=== PATIENT | female | born 1965 | race Asian ===

== ENCOUNTER 2017-12-23 08:52 | Observation (INO) | payer OTHER ==
[~2017-12-23] VITALS: Ht 157.5 cm; Wt 61.1 kg
[2017-12-23] MEDS ORDERED: NITROGLYCERIN SINGLE TAB 0.4 MG SL PRN ×2 (09:30→14:00)
[2017-12-23] MEDS ORDERED: NITROGLYCERIN SINGLE TAB 0.4 MG SL ONE (09:41)
[2017-12-23 09:49] LABS: BASOPHILS % (AUTO) 0 % (0-1); EOSINOPHILS # (AUTO) 0.05 x10^3/uL (0-0.4); EOSINOPHILS % (AUTO) 1 % (1-7); LYMPHOCYTES # (AUTO) 1.04 x10^3/uL (1-3.4); LYMPHOCYTES % (AUTO) 11 % (22-44); MD NO; MEAN CORPUSCULAR HEMOGLOBIN 27.6 pg (27.0-34.8); MEAN CORPUSCULAR HGB CONC 33.1 g/dL (32.4-35.8); MEAN CORPUSCULAR VOLUME 83.4 fL (80-100); MEAN PLATELET VOLUME 8.9 fL (7.4-10.4); MONOCYTES % (AUTO) 3 % (2-9); NEUTROPHILS # (AUTO) 8.57 x10^3/uL (1.8-6.8); NEUTROPHILS % (AUTO) 86 % (42-75); PLATELET COUNT 249 x10^3/uL (130-400); RED BLOOD COUNT 4.78 x10^6/uL (3.82-5.3); RED CELL DISTRIBUTION WIDTH 17.5 % (9.6-15.2)
[2017-12-23 09:59] LABS: ALANINE AMINOTRANSFERASE 21 U/L (12-78); ALBUMIN 3.5 g/dL (3.4-5.0); ANION GAP 10 mmol/L (5-15); CALCIUM 8.9 mg/dL (8.5-10.1); CHLORIDE 107 mmol/L (98-107)
[2017-12-23] MEDS ORDERED: SODIUM CHLORIDE 0.9% 1,000ML IVBOLUS ONE (10:00)
[2017-12-23] MEDS ORDERED: SODIUM CHLORIDE 0.9% 1,000 ML IV ONE (10:00)
[2017-12-23 10:02] LABS: INTERNATIONAL NORMALIZED RATIO 0.93 (0.93-1.1); PROTHROMBIN TIME 9.6 Seconds (9.6-11.5)
[2017-12-23 10:04] LABS: ALKALINE PHOSPHATASE 61 U/L (45-117); BILIRUBIN,TOTAL 0.3 mg/dL (0.2-1.0); TROPONIN I < 0.015 ng/mL (0.000-0.045)
[2017-12-23] MEDS ORDERED: SODIUM CHLORIDE FLUSH 10ML SYR IVF ONE (10:30)
[2017-12-23] MEDS ORDERED: SODIUM CHLORIDE FLUSH 10ML SYR IVF PRN (12:00)
[2017-12-23] MEDS ORDERED: MAALOX/HYOSCYAMINE/LIDOCAINE 45 ML BTL PO PRN (13:30)
[2017-12-23 13:51] LABS: HCT (SEDRATE) 40.6 % (34.6-47.8)
[2017-12-23 13:57] VITALS: BP 130/75
[2017-12-23] MEDS ORDERED: CALCIUM CARBONATE 500 MG TAB.CHEW PO PRN (14:00)
[2017-12-23] MEDS ORDERED: NITROGLYCERIN 0.4 MG/SPRAY SL PRN (14:00)
[2017-12-23] MEDS ORDERED: KETOROLAC 30 MG/1 ML IVPush PRN (14:00)
[2017-12-23] MEDS ORDERED: NITROGLYCERIN 0.4 MG BOTTLE (25 TABS) SL PRN (14:00)
[2017-12-23] MEDS ORDERED: ACETAMINOPHEN 650 MG/20.3 ML UDC PO PRN (14:00)
[2017-12-23] MEDS ORDERED: morphine SULFATE 10 MG/ML, 1ML IV PRN (14:00)
[2017-12-23] MEDS ORDERED: ONDANSETRON 2MG/ML, 2ML IVP PRN (14:00)
[2017-12-23 14:04] LABS: C-REACTIVE PROTEIN, QUANT 0.08 mg/dL (0.02-0.49)
[2017-12-23 14:12] LABS: THYROID STIMULATING HORMONE 1.11 mIU/L (0.358-3.740)
[2017-12-23 16:06] LABS: TROPONIN I < 0.015 ng/mL (0.000-0.045)
[2017-12-23] MEDS: SODIUM CHLORIDE 0.9% 1,000 ML IV SCH (16:37)
[2017-12-23] MEDS: ENOXAPARIN 40 MG/0.4 ML SQ SCH (16:44)
[2017-12-23] MEDS: PANTOPRAZOLE 40 MG IV IVPush SCH ×2 (16:44→21:02)
[2017-12-23 20:25] VITALS: BP 129/80
[2017-12-23 20:27] VITALS: BP 129/80
[2017-12-23] MEDS: SODIUM CHLORIDE FLUSH 10ML SYR IVF SCH (21:00)
[2017-12-23 21:47] LABS: MICROSCOPIC AUTO
[2017-12-23 21:59] LABS: CULTURE INDICATED? YES
[2017-12-23 22:22] LABS: TROPONIN I < 0.015 ng/mL (0.000-0.045)
[2017-12-24] MEDS: SODIUM CHLORIDE 0.9% 1,000 ML IV SCH ×2 (00:49→14:00)
[2017-12-24 02:00] VITALS: BP 110/69
[2017-12-24 05:28] LABS: BASOPHILS # (AUTO) 0.04 x10^3/uL (0-0.1); BASOPHILS % (AUTO) 1 % (0-1); EOSINOPHILS # (AUTO) 0.11 x10^3/uL (0-0.4); EOSINOPHILS % (AUTO) 1 % (1-7); LYMPHOCYTES # (AUTO) 1.93 x10^3/uL (1-3.4); LYMPHOCYTES % (AUTO) 26 % (22-44); MD NO; MEAN CORPUSCULAR HEMOGLOBIN 27.5 pg (27.0-34.8); MEAN CORPUSCULAR HGB CONC 32.2 g/dL (32.4-35.8); MEAN CORPUSCULAR VOLUME 85.2 fL (80-100); MEAN PLATELET VOLUME 9.1 fL (7.4-10.4); MONOCYTES # (AUTO) 0.58 x10^3/uL (0.2-0.8); MONOCYTES % (AUTO) 8 % (2-9); NEUTROPHILS # (AUTO) 4.89 x10^3/uL (1.8-6.8); NEUTROPHILS % (AUTO) 65 % (42-75); PLATELET COUNT 262 x10^3/uL (130-400); RED BLOOD COUNT 4.74 x10^6/uL (3.82-5.3); RED CELL DISTRIBUTION WIDTH 17.4 % (9.6-15.2)
[2017-12-24 05:41] LABS: ALBUMIN 3.3 g/dL (3.4-5.0); ANION GAP 7 mmol/L (5-15); CALCIUM 8.5 mg/dL (8.5-10.1); CHLORIDE 113 mmol/L (98-107)
[2017-12-24 05:44] LABS: ALANINE AMINOTRANSFERASE 19 U/L (12-78); ALKALINE PHOSPHATASE 53 U/L (45-117); BILIRUBIN,TOTAL 0.5 mg/dL (0.2-1.0); CHOLESTEROL, TOTAL 174 mg/dL (140-239); CREATININE 0.63 mg/dL (0.55-1.02); HDL CHOLESTEROL (DIRECT) 60 mg/dL (40-60); TOTAL PROTEIN 7.2 g/dL (6.4-8.2); TRIGLYCERIDES 107 mg/dL (50-200); VLDL CHOLESTEROL 21 mg/dL (0-25)
[2017-12-24 05:45] LABS: CHOL/HDL RATIO 2.9; HDL CHOL % 34 % (28-40); LDL CHOLESTEROL,CALCULATED 93 mg/dL (54-169); LDL/HDL RATIO 1.6 (0.5-3.0)
[2017-12-24] MEDS ORDERED: ASPIRIN 325 MG TABLET EC PO SCH (06:00)
[2017-12-24 07:12] VITALS: BP 122/71
[2017-12-24] MEDS: SODIUM CHLORIDE FLUSH 10ML SYR IVF SCH (08:30)
[2017-12-24] MEDS: PANTOPRAZOLE 40 MG IV IVPush SCH (08:30)
[2017-12-24] MEDS ORDERED: REGADENOSON 0.4 MG/5 ML SYRINGE ONE (08:32)
[2017-12-24 13:05] VITALS: BP_SYST 106; BP_SYST 68; BP_DIAS 68
[2017-12-24] MEDS: ENOXAPARIN 40 MG/0.4 ML SQ SCH (14:00)
[2017-12-24] MEDS ORDERED: CALC200T24 PO (16:14)
[2017-12-24] MEDS ORDERED: FAMO20TA37 PO (16:14)
[2017-12-24] MEDS ORDERED: IBUP-1484 PO (16:14)
== END 2017-12-24 17:16 | disposition home or self-care (01) ==
LOC: ED 11:51 → EDIP 11:52 → INTOOBSV 11:52 → ED 12:16 → 5SO 13:48 → DCLOUNGE 12-24 17:02
PROVIDERS: ADMIT Internal Medicine; ATTEND Internal Medicine
DX: R07.89 Other chest pain (principal); E86.0 Dehydration; R11.2 Nausea with vomiting, unspecified; R10.9 Unspecified abdominal pain; K21.9 Gastro-esophageal reflux disease without esophagitis; I45.10 Unspecified right bundle-branch block
CPT/HCPCS: 36415; 70450; 71046; 78452; 80053; 80061; 81001; 83690; 84443; 84484; 85025; 85610; 85651; 85730; 86140; 86677; 87086; 93005; 93017; 93306; 96361; 96372; 96374; 96376; 99285; A9502; C9113; C9898; G0378; J1650; J7030; J2785